=== PATIENT | male | born 1960 | race Two or more races ===

== ENCOUNTER 2021-08-19 12:25 | Outpatient (CLI) | payer OTHER ==
[~2021-08-19 12:25] MED LIST: DICLOFENAC POTA50 MG PO
== END 2021-08-19 12:34 | disposition home or self-care (01) ==
LOC: MRI 12:25
PROVIDERS: ATTEND Physical Medicine & Rehabilitation
DX: M25.469 Effusion, unspecified knee (principal)
CPT/HCPCS: 73718

== ENCOUNTER → 2023-06-15 10:51 | Outpatient (CLI) | payer OTHER ==
[~2023-06-15 10:51] MED LIST changes: +AMLODIPINE-OLM1 EAC3 PO; +DIOVAN40 MG PO; +TUSSIN DM SYRU118 ML PO; +ZITHROMAX500 MG PO; +ZYRTEC10 M3 PO
== END | disposition home or self-care (01) ==
LOC: LAB 09:48
PROVIDERS: ATTEND Physical Medicine & Rehabilitation
DX: M17.12 Unilateral primary osteoarthritis, left knee (principal); M10.9 Gout, unspecified; M22.2X2 Patellofemoral disorders, left knee

== ENCOUNTER 2024-09-18 09:50 | Emergency (ER) | payer OTHER ==
[~2024-09-18] VITALS: Ht 172.7 cm; Wt 75.3 kg
[2024-09-18] MEDS ORDERED: KETOROLAC TROMETHAMINE 30 MG VIAL IM STA (10:02)
[2024-09-18] MEDS ORDERED: ORPHENADRINE CITRATE 30 MG/ML AMPUL IM STA (10:03)
[2024-09-18] MEDS ORDERED: CELEBREX200MG PO (11:36)
[2024-09-18] MEDS ORDERED: MEDROLPACK PO (11:36)
[2024-09-18] MEDS ORDERED: METAXALONE800 MG PO (11:36)
== END 2024-09-18 11:42 | disposition home or self-care (01) ==
LOC: ER 09:52
DX: M54.42 Lumbago with sciatica, left side (principal)

== ENCOUNTER 2025-01-29 16:09 | Emergency (ER) | payer OTHER ==
[~2025-01-29] VITALS: Ht 172.7 cm; Wt 76.7 kg
[~2025-01-29 16:09] MED LIST changes: +CELEBREX200MG PO; +MEDROLPACK PO; +METAXALONE800 MG PO
[2025-01-29] MEDS ORDERED: GUAIFENESIN 200 MG/10 ML BLIST.PACK PO ONE ×2 (17:15→17:34)
[2025-01-29] MEDS ORDERED: METHYLPREDNISOLONE SOD SUCC 125 MG VIAL IV ONE (17:15)
[2025-01-29 18:18] LABS: HEMATOCRIT 37.4 % (39.0-48.0); HEMOGLOBIN 12.7 g/dL (13-16.00); MEAN CELL VOLUME 89.8 fL (80.0-100.00); MEAN CORPUSCULAR HEMOGLOBIN 30.6 pg (27.00-32.0); MEAN CORPUSCULAR HGB CONC 34.1 g/dl (32.0-36.0); PLATELET COUNT 307 K/uL (150-450); RED BLOOD COUNT 4.16 M/uL (4.00-6.00); RED CELL DISTRIBUTION WIDTH 13.4 % (11.5-14.5)
[2025-01-29 18:51] LABS: COVID-19 AG NEGATIVE (NEGATIVE)
[2025-01-29 19:45] LABS: INFLUENZA A AG NEGATIVE (NEGATIVE)
== END 2025-01-29 20:59 | disposition home or self-care (01) ==
LOC: ER 16:09
PROVIDERS: General Practice
DX: R49.0 Dysphonia (principal); R05.8 Other specified cough; Z20.822 Contact with and (suspected) exposure to COVID-19